=== PATIENT | male | born 1975 | race African-American/Black ===

== ENCOUNTER 2022-09-25 12:47 | Inpatient (IN) | payer MEDICAID, OTHER ==
[~2022-09-25] VITALS: Ht 180.3 cm; Wt 59.0 kg
[2022-09-25 15:04] LABS: HEMATOCRIT. 56.9 % (42.0-52.0); HEMOGLOBIN. 18.5 g/dL (14.0-18.0); MEAN CORPUSCULAR HEMOGLOBIN 29.8 pg (28.0-32.0); MEAN CORPUSCULAR VOLUME 91.9 fL (80.0-94.0); PLATELET 256 x1000/uL (130-400); RED BLOOD CELL COUNT 6.19 mill/uL (4.7-6.1)
[2022-09-25 15:07] LABS: CHLORIDE 101 mEq/L (98-107)
[2022-09-25 15:16] LABS: ETHANOL BLOOD < 10 mg/dL
[2022-09-25 17:12] LABS: PLATELET ESTIMATE NORMAL
[2022-09-26] VITALS (62 sets, daily range): BP systolic 58–181; BP diastolic 27–120
[2022-09-26] MEDS ORDERED: SODIUM CHLORIDE 0.9% 1,000 ML IV ONE ×2 (01:15→02:30)
[2022-09-26] MEDS ORDERED: MORPHINE SULFATE 2 MG/ML CPJ (NOT FOR IM USE) IV ONE ×2 (01:15→02:30)
[2022-09-26] MEDS ORDERED: IOHEXOL-300 100 ML BOTTLE ONE (02:14)
[2022-09-26] MEDS ORDERED: METRONIDAZOLE 500 MG PREMIX 100 ML IV ONE (02:30)
[2022-09-26] MEDS ORDERED: VANCOMYCIN 1G PREMIX 200 ML IV SCH (02:30)
[2022-09-26] MEDS ORDERED: CEFEPIME 1,000 MG in DEXTROSE 5% WATER 50 ML IV SCH (02:30)
[2022-09-26] MEDS ORDERED: BUPIVACAINE HCL/PF 0.5% (5MG/ML) 30ML ONE (04:05)
[2022-09-26] MEDS ORDERED: MIDAZOLAM HCL 2 MG/2 ML VIAL ONE (04:15)
[2022-09-26] MEDS ORDERED: ETOMIDATE 2MG/ML 10ML VIAL IV ONE (04:15)
[2022-09-26] MEDS ORDERED: ROCURONIUM BROMIDE 10MG/ML VIAL 5ML IV ONE ×2 (04:16→07:01)
[2022-09-26] MEDS ORDERED: SUCCINYLCHOLINE CHLORIDE 200MG/10ML IV ONE (04:18)
[2022-09-26] MEDS ORDERED: PHENYLEPHRINE HCL 10 MG/ML 1ML (IV VIAL) IV ONE (04:20)
[2022-09-26] MEDS ORDERED: FENTANYL CITRATE/PF 50MCG/ML 2ML VIAL ONE ×4 (04:27→07:53)
[2022-09-26] MEDS ORDERED: CEFAZOLIN SODIUM 1000MG/VIAL ONE ×2 (04:27)
[2022-09-26] MEDS ORDERED: DEXAMETHASONE 4MG/ML 1ML VIAL ONE (04:28)
[2022-09-26] MEDS ORDERED: ONDANSETRON HCL 4MG/2ML INJ ONE (04:28)
[2022-09-26] MEDS ORDERED: ONDANSETRON HCL 4MG/2ML INJ IV PRN (04:45)
[2022-09-26] MEDS ORDERED: MORPHINE SULFATE 4 MG/ML CPJ (NOT FOR IM USE) IV PRN (04:45)
[2022-09-26] MEDS ORDERED: NALOXONE HCL 0.4MG/ML VIAL IV PRN (05:00)
[2022-09-26] MEDS ORDERED: ALBUMIN HUMAN 12.5GM/50ML (25%) IV ONE (05:18)
[2022-09-26] MEDS ORDERED: ALBUMIN HUMAN 12.5G/250ML (5%) IV ONE ×2 (05:19→05:44)
[2022-09-26] MEDS ORDERED: NOREPINEPHRINE 8 MG in DEXTROSE 5% WATER 250 ML IV PRN (05:30)
[2022-09-26 07:02] LABS: BG BASE EXCESS -16.7 mmol/L (-2.0-2.0); BG CARBOXYHEMOGLOBIN 0.3 % (0.5-1.5); BG DEOXYHEMOGLOBIN 0.2 % (0.0-5.0); BG FRACTION INSPIRED OXYGEN 100; BG HCO3 ACT 12.8 mmol/L (22.0-26.0); BG METHEMOGLOBIN 0.5 % (0.0-1.5); BG OXYGEN SATURATION 99.8 % (92.0-98.5); BG PCO2 44.3 mmHg (35.0-45.0); BG PO2 > 602.7 mmHg (75.0-100.0); BG SAMPLE SITE LEFT FEMORAL; BG TOTAL HEMOGLOBIN 13.2 g/dL (12.0-18.0); BG VENT MODE VENT - SIMV
[2022-09-26] MEDS ORDERED: SODIUM BICARBONATE 8.4% 1 MEQ/ML 50ML SYR IV ONE ×2 (07:02→07:04)
[2022-09-26] MEDS: ENOXAPARIN 40MG/0.4ML SYR SUBCUT SCH (09:00)
[2022-09-26] MEDS ORDERED: DIGOXIN 500MCG/2ML AMP IV SCH (09:00)
[2022-09-26] MEDS: PANTOPRAZOLE SODIUM 40 MG/VIAL IV SCH (09:15)
[2022-09-26 09:53] LABS: BG BASE EXCESS -14.4 mmol/L (-2.0-2.0); BG DEOXYHEMOGLOBIN 0.5 % (0.0-5.0); BG FRACTION INSPIRED OXYGEN 70; BG METHEMOGLOBIN 0.3 % (0.0-1.5); BG OXYGEN SATURATION 99.5 % (92.0-98.5); BG OXYHEMOGLOBIN 99.2 % (94.0-97.0); BG PCO2 35.5 mmHg (35.0-45.0); BG PH 7.181 (7.350-7.450); BG PO2 293.1 mmHg (75.0-100.0); BG SAMPLE SITE RIGHT RADIAL; BG TOTAL HEMOGLOBIN 13.2 g/dL (12.0-18.0); BG VENT MODE VENT - AC
[2022-09-26] MEDS ORDERED: DIGOXIN 500MCG/2ML AMP IV NR (10:30)
[2022-09-26] MEDS ORDERED: SODIUM BICARBONATE 8.4% 1 MEQ/ML 50ML SYR IV NR (10:45)
[2022-09-26] MEDS: METRONIDAZOLE 500 MG PREMIX 100 ML IV SCH ×2 (10:51→15:51)
[2022-09-26] MEDS: PROPOFOL 10MG/ML 100ML 100 ML IV PRN ×3 (11:11→21:18)
[2022-09-26] MEDS: CEFEPIME 1,000 MG in DEXTROSE 5% WATER 50 ML IV SCH ×3 (12:29→22:50)
[2022-09-26] MEDS: PHENYLEPHRINE 50 MG in DEXT 5% WATER 245 ML IV PRN ×2 (13:04→18:13)
[2022-09-26 13:59] LABS: BG BASE EXCESS -5.7 mmol/L (-2.0-2.0); BG CARBOXYHEMOGLOBIN 0.7 % (0.5-1.5); BG DEOXYHEMOGLOBIN 0.6 % (0.0-5.0); BG FRACTION INSPIRED OXYGEN 40; BG HCO3 ACT 18.3 mmol/L (22.0-26.0); BG METHEMOGLOBIN 0.4 % (0.0-1.5); BG OXYGEN SATURATION 99.4 % (92.0-98.5); BG OXYHEMOGLOBIN 98.3 % (94.0-97.0); BG PCO2 31.7 mmHg (35.0-45.0); BG PH 7.379 (7.350-7.450); BG PO2 205.3 mmHg (75.0-100.0); BG SAMPLE SITE RIGHT RADIAL; BG TOTAL HEMOGLOBIN 13.8 g/dL (12.0-18.0); BG VENT MODE VENT - AC
[2022-09-26] MEDS: DEXT 5%/0.45% NACL KCL 20MEQ/L 1,000 ML IV SCH (15:53)
[2022-09-26 16:20] LABS: CLARITY URINE TURBID (CLEAR); COLOR URINE YELLOW (YELLOW); KETONES URINE NEGATIVE (NEGATIVE); LEUKOCYTE ESTERASE URINE NEGATIVE (NEGATIVE); NITRITE URINE NEGATIVE (NEGATIVE); OCCULT BLOOD URINE 3+ (NEGATIVE); PROTEIN URINE 2+ (NEGATIVE); SPECIFIC GRAVITY URINE 1.027 (1.005-1.030); UROBILINOGEN URINE 0.2 E.U./dL (0.2-1.0)
[2022-09-26] MEDS ORDERED: FENTANYL CITRATE/PF 2,500 MCG in SODIUM CHLORIDE 0.9% 200 ML IV PRN (16:30)
[2022-09-26] MEDS ORDERED: IPRATROPIUM BROMIDE (0.02%) 0.5MG/2.5ML NEB HHN PRN (16:30)
[2022-09-26 16:34] LABS: *AMPHETAMINES SCREEN URINE NEGATIVE (NEGATIVE); *BARBITURATES SCREEN URINE NEGATIVE (NEGATIVE); *BENZODIAZEPINES SCREEN URINE PRESUMTIVE POSITIVE (NEGATIVE); *COCAINE SCREEN URINE NEGATIVE (NEGATIVE); CANNABINOID URINE SCREEN PRESUMTIVE POSITIVE (NEGATIVE); METHADONE URINE SCREEN NEGATIVE (NEGATIVE); OPIATES URINE SCREEN PRESUMTIVE POSITIVE (NEGATIVE); PHENCYCLIDINE URINE SCREEN NEGATIVE (NEGATIVE)
[2022-09-26] MEDS ORDERED: NOREPINEPHRINE 8 MG in DEXT 5% WATER 242 ML IV PRN (18:30)
[2022-09-26] MEDS: IPRATROPIUM BROMIDE (0.02%) 0.5MG/2.5ML NEB HHN SCH (20:30)
[2022-09-27] VITALS (75 sets, daily range): BP systolic 86–157; BP diastolic 25–113
[2022-09-27] MEDS: METRONIDAZOLE 500 MG PREMIX 100 ML IV SCH ×4 (00:29→22:52)
[2022-09-27] MEDS: PHENYLEPHRINE 50 MG in DEXT 5% WATER 245 ML IV PRN ×2 (00:31→03:32)
[2022-09-27] MEDS: DEXT 5%/0.45% NACL KCL 20MEQ/L 1,000 ML IV SCH ×2 (01:12→10:45)
[2022-09-27] MEDS: IPRATROPIUM BROMIDE (0.02%) 0.5MG/2.5ML NEB HHN SCH ×4 (02:09→20:25)
[2022-09-27 05:44] LABS: HEMATOCRIT. 38.9 % (42.0-52.0); HEMOGLOBIN. 13.1 g/dL (14.0-18.0); MEAN CORPUSCULAR VOLUME 89.2 fL (80.0-94.0); MEAN PLATELET VOLUME 10.5 fl (7.4-10.4); PLATELET 163 x1000/uL (130-400); RED BLOOD CELL COUNT 4.36 mill/uL (4.7-6.1); RED CELL DISTRIBUTION WIDTH 14.3 % (11.6-14.6)
[2022-09-27] MEDS: PROPOFOL 10MG/ML 100ML 100 ML IV PRN (06:55)
[2022-09-27] MEDS ORDERED: LIDOCAINE HCL/PF 1% 10 MG/ML 5ML VIAL ONE (07:47)
[2022-09-27] MEDS: PANTOPRAZOLE SODIUM 40 MG/VIAL IV SCH (09:07)
[2022-09-27] MEDS: ENOXAPARIN 40MG/0.4ML SYR SUBCUT SCH (09:07)
[2022-09-27 09:27] LABS: PLATELET ESTIMATE NORMAL
[2022-09-27 10:02] LABS: BG BASE EXCESS -1.5 mmol/L (-2.0-2.0); BG CARBOXYHEMOGLOBIN 0.2 % (0.5-1.5); BG DEOXYHEMOGLOBIN 1.7 % (0.0-5.0); BG FRACTION INSPIRED OXYGEN 40; BG HCO3 ACT 22.5 mmol/L (22.0-26.0); BG METHEMOGLOBIN 0.3 % (0.0-1.5); BG OXYGEN SATURATION 98.3 % (92.0-98.5); BG OXYHEMOGLOBIN 97.8 % (94.0-97.0); BG PCO2 35.8 mmHg (35.0-45.0); BG PH 7.417 (7.350-7.450); BG SAMPLE SITE LEFT RADIAL; BG TOTAL HEMOGLOBIN 12.9 g/dL (12.0-18.0); BG VENT MODE VENT - AC
[2022-09-27] MEDS ORDERED: PROPOFOL 10MG/ML 100ML 100 ML IV PRN (10:30)
[2022-09-27 14:17] LABS: BG BASE EXCESS 0.4 mmol/L (-2.0-2.0); BG CARBOXYHEMOGLOBIN 0.1 % (0.5-1.5); BG DEOXYHEMOGLOBIN 1.5 % (0.0-5.0); BG FRACTION INSPIRED OXYGEN 40; BG HCO3 ACT 25.5 mmol/L (22.0-26.0); BG METHEMOGLOBIN 0.3 % (0.0-1.5); BG OXYGEN SATURATION 98.5 % (92.0-98.5); BG OXYHEMOGLOBIN 98.1 % (94.0-97.0); BG PH 7.391 (7.350-7.450); BG PO2 146.3 mmHg (75.0-100.0); BG SAMPLE SITE RIGHT RADIAL; BG TOTAL HEMOGLOBIN 13.7 g/dL (12.0-18.0); BG VENT MODE VENT - CPAP
[2022-09-27] MEDS: CEFEPIME 1,000 MG in DEXTROSE 5% WATER 50 ML IV SCH (21:26)
[2022-09-27] MEDS: DEXT 5%/0.45% NACL 1000ML 1,000 ML IV SCH (21:40)
[2022-09-28] VITALS (40 sets, daily range): BP systolic 110–157; BP diastolic 66–105
[2022-09-28] MEDS: IPRATROPIUM BROMIDE (0.02%) 0.5MG/2.5ML NEB HHN SCH ×4 (02:34→20:47)
[2022-09-28 05:59] LABS: PHOSPHORUS 4.2 mg/dL (2.5-4.9)
[2022-09-28] MEDS: METRONIDAZOLE 500 MG PREMIX 100 ML IV SCH ×3 (06:41→22:00)
[2022-09-28] MEDS: ENOXAPARIN 30MG/0.3ML SYR SUBCUT SCH (09:07)
[2022-09-28] MEDS: PANTOPRAZOLE SODIUM 40 MG/VIAL IV SCH (09:07)
[2022-09-28] MEDS: MORPHINE SULFATE 2 MG/ML CPJ (NOT FOR IM USE) IV PRN ×2 (09:10→14:07)
[2022-09-28 10:07] LABS: HEMATOCRIT. 36.4 % (42.0-52.0); HEMOGLOBIN. 12.2 g/dL (14.0-18.0); MEAN CORPUSCULAR HEMOGLOBIN 29.7 pg (28.0-32.0); MEAN CORPUSCULAR VOLUME 88.9 fL (80.0-94.0); MEAN PLATELET VOLUME 10.3 fl (7.4-10.4); PLATELET 127 x1000/uL (130-400); RED CELL DISTRIBUTION WIDTH 13.9 % (11.6-14.6)
[2022-09-28] MEDS ORDERED: METOPROLOL TARTRATE 5MG/5ML VIAL IV PRN (10:15)
[2022-09-28] MEDS: DEXT 5%/0.45% NACL 1000ML 1,000 ML IV SCH (11:16)
[2022-09-28 11:40] LABS: PLATELET ESTIMATE NORMAL
[2022-09-28] MEDS: CEFEPIME 1,000 MG in DEXTROSE 5% WATER 50 ML IV SCH (20:26)
[2022-09-29] VITALS (24 sets, daily range): BP systolic 121–170; BP diastolic 53–120
[2022-09-29] MEDS: DEXT 5%/0.45% NACL 1000ML 1,000 ML IV SCH ×2 (00:42→13:47)
[2022-09-29] MEDS: IPRATROPIUM BROMIDE (0.02%) 0.5MG/2.5ML NEB HHN SCH ×4 (02:35→21:00)
[2022-09-29] MEDS: METRONIDAZOLE 500 MG PREMIX 100 ML IV SCH ×3 (06:00→21:58)
[2022-09-29 06:34] LABS: HEMOGLOBIN. 12.3 g/dL (14.0-18.0); MEAN CORPUSCULAR HEMOGLOBIN 30.3 pg (28.0-32.0); MEAN CORPUSCULAR VOLUME 88.6 fL (80.0-94.0); MEAN PLATELET VOLUME 10.4 fl (7.4-10.4); PLATELET 116 x1000/uL (130-400); RED BLOOD CELL COUNT 4.06 mill/uL (4.7-6.1); RED CELL DISTRIBUTION WIDTH 14.4 % (11.6-14.6)
[2022-09-29] MEDS: PANTOPRAZOLE SODIUM 40 MG/VIAL IV SCH (08:32)
[2022-09-29] MEDS: ENOXAPARIN 30MG/0.3ML SYR SUBCUT SCH (08:33)
[2022-09-29 09:45] LABS: CHLORIDE 106 mEq/L (98-107)
[2022-09-29 10:05] LABS: PHOSPHORUS 2.7 mg/dL (2.5-4.9)
[2022-09-29 13:40] LABS: PLATELET ESTIMATE SLIGHTLY DECREASED
[2022-09-29] MEDS: CEFEPIME 1,000 MG in DEXTROSE 5% WATER 50 ML IV SCH (21:56)
[2022-09-30] VITALS (14 sets, daily range): BP systolic 131–166; BP diastolic 46–99
[2022-09-30] MEDS: IPRATROPIUM BROMIDE (0.02%) 0.5MG/2.5ML NEB HHN SCH ×3 (02:19→21:49)
[2022-09-30] MEDS: DEXT 5%/0.45% NACL 1000ML 1,000 ML IV SCH ×2 (02:50→19:06)
[2022-09-30 06:25] LABS: HEMATOCRIT. 34.9 % (42.0-52.0); MEAN CORPUSCULAR HEMOGLOBIN 30.7 pg (28.0-32.0); MEAN CORPUSCULAR VOLUME 88.8 fL (80.0-94.0); MEAN PLATELET VOLUME 10.2 fl (7.4-10.4); PLATELET 128 x1000/uL (130-400); RED BLOOD CELL COUNT 3.93 mill/uL (4.7-6.1); RED CELL DISTRIBUTION WIDTH 14.7 % (11.6-14.6)
[2022-09-30] MEDS: METRONIDAZOLE 500 MG PREMIX 100 ML IV SCH ×3 (06:57→23:30)
[2022-09-30 07:09] LABS: CHLORIDE 107 mEq/L (98-107)
[2022-09-30 07:15] LABS: PHOSPHORUS 2.3 mg/dL (2.5-4.9)
[2022-09-30] MEDS: PANTOPRAZOLE SODIUM 40 MG/VIAL IV SCH (09:03)
[2022-09-30] MEDS: ENOXAPARIN 30MG/0.3ML SYR SUBCUT SCH (09:04)
[2022-09-30] MEDS: MORPHINE SULFATE 2 MG/ML CPJ (NOT FOR IM USE) IV PRN (09:45)
[2022-09-30] MEDS ORDERED: SODIUM PHOS,M-BASIC-D-BASIC 15 MM in DEXT 5% WATER 245 ML IV SCH (11:00)
[2022-09-30] MEDS: CEFEPIME 1,000 MG in DEXTROSE 5% WATER 50 ML IV SCH ×2 (11:30→23:30)
[2022-09-30] MEDS ORDERED: FLUCONAZOLE 100MG TABLET PO SCH (11:45)
[2022-09-30 12:55] LABS: PLATELET ESTIMATE SLIGHTLY DECREASED
[2022-09-30] MEDS: FLUCONAZOLE 200 MG/100ML BAG 100 ML IV SCH (14:00)
[2022-10-01] VITALS: BP 139/88
[2022-10-01] MEDS: IPRATROPIUM BROMIDE (0.02%) 0.5MG/2.5ML NEB HHN SCH ×4 (02:15→21:40)
[2022-10-01 04:00] VITALS: BP 134/103
[2022-10-01] MEDS: DEXT 5%/0.45% NACL 1000ML 1,000 ML IV SCH (05:30)
[2022-10-01] MEDS: METRONIDAZOLE 500 MG PREMIX 100 ML IV SCH ×3 (06:00→21:53)
[2022-10-01] MEDS: CEFEPIME 1,000 MG in DEXTROSE 5% WATER 50 ML IV SCH ×2 (07:11→20:10)
[2022-10-01] MEDS: PANTOPRAZOLE SODIUM 40 MG/VIAL IV SCH (08:26)
[2022-10-01] MEDS: ENOXAPARIN 40MG/0.4ML SYR SUBCUT SCH (08:27)
[2022-10-01 12:00] VITALS: BP 131/84
[2022-10-01] MEDS: FLUCONAZOLE 200 MG/100ML BAG 100 ML IV SCH (14:50)
[2022-10-01 17:49] LABS: HEMATOCRIT. 39.8 % (42.0-52.0); HEMOGLOBIN. 13.5 g/dL (14.0-18.0); MEAN CORPUSCULAR HEMOGLOBIN 30.1 pg (28.0-32.0); MEAN CORPUSCULAR VOLUME 88.4 fL (80.0-94.0); MEAN PLATELET VOLUME 9.9 fl (7.4-10.4); PLATELET 161 x1000/uL (130-400); RED CELL DISTRIBUTION WIDTH 14.3 % (11.6-14.6)
[2022-10-01 17:58] LABS: CHLORIDE 102 mEq/L (98-107)
[2022-10-01 18:15] LABS: PLATELET ESTIMATE NORMAL
[2022-10-01 20:00] VITALS: BP 145/81
[2022-10-02] VITALS: BP 124/83
[2022-10-02] MEDS: METRONIDAZOLE 500 MG PREMIX 100 ML IV SCH ×4 (01:25→23:56)
[2022-10-02 04:00] VITALS: BP 115/78
[2022-10-02 06:59] LABS: CHLORIDE 102 mEq/L (98-107)
[2022-10-02 07:11] LABS: HEMATOCRIT. 38.6 % (42.0-52.0); HEMOGLOBIN. 13.1 g/dL (14.0-18.0); MEAN CORPUSCULAR HEMOGLOBIN 29.6 pg (28.0-32.0); MEAN CORPUSCULAR VOLUME 87.5 fL (80.0-94.0); MEAN PLATELET VOLUME 9.6 fl (7.4-10.4); PLATELET 173 x1000/uL (130-400); RED BLOOD CELL COUNT 4.41 mill/uL (4.7-6.1); RED CELL DISTRIBUTION WIDTH 14.2 % (11.6-14.6)
[2022-10-02 08:00] VITALS: BP 137/98
[2022-10-02] MEDS: FAMOTIDINE 20MG TABLET PO SCH ×2 (10:25→20:33)
[2022-10-02] MEDS: CEFEPIME 1,000 MG in DEXTROSE 5% WATER 50 ML IV SCH ×2 (10:25→20:33)
[2022-10-02] MEDS: ENOXAPARIN 40MG/0.4ML SYR SUBCUT SCH (10:26)
[2022-10-02] MEDS: DEXT 5%/0.45% NACL 1000ML 1,000 ML IV SCH ×2 (10:27→20:34)
[2022-10-02 12:00] VITALS: BP 124/80
[2022-10-02] MEDS ORDERED: OMEP40CA20 MT (12:13)
[2022-10-02] MEDS: FLUCONAZOLE 200 MG/100ML BAG 100 ML IV SCH (14:01)
[2022-10-02 16:00] VITALS: BP 130/64
[2022-10-02] MEDS ORDERED: FLUC200T51 MT (16:39)
[2022-10-02] MEDS ORDERED: AMOX1TAB16 MT (16:39)
[2022-10-02 20:00] VITALS: BP 148/96
[2022-10-03 04:00] VITALS: BP 135/90
[2022-10-03 07:10] LABS: PLATELET ESTIMATE NORMAL
[2022-10-03] MEDS: ENOXAPARIN 40MG/0.4ML SYR SUBCUT SCH (08:35)
[2022-10-03] MEDS: METRONIDAZOLE 500 MG PREMIX 100 ML IV SCH ×2 (08:35→16:37)
[2022-10-03] MEDS: DEXT 5%/0.45% NACL 1000ML 1,000 ML IV SCH (08:35)
[2022-10-03] MEDS: CEFEPIME 1,000 MG in DEXTROSE 5% WATER 50 ML IV SCH ×2 (08:35→21:02)
[2022-10-03] MEDS: FAMOTIDINE 20MG TABLET PO SCH ×2 (08:35→21:02)
[2022-10-03 09:01] LABS: HEMATOCRIT. 38.2 % (42.0-52.0); HEMOGLOBIN. 12.8 g/dL (14.0-18.0); MEAN CORPUSCULAR HEMOGLOBIN 29.3 pg (28.0-32.0); MEAN CORPUSCULAR VOLUME 87.7 fL (80.0-94.0); MEAN PLATELET VOLUME 9.6 fl (7.4-10.4); PLATELET 206 x1000/uL (130-400); RED BLOOD CELL COUNT 4.35 mill/uL (4.7-6.1); RED CELL DISTRIBUTION WIDTH 14.2 % (11.6-14.6)
[2022-10-03 09:28] LABS: CHLORIDE 102 mEq/L (98-107)
[2022-10-03 09:34] LABS: PHOSPHORUS 2.7 mg/dL (2.5-4.9)
[2022-10-03 13:46] LABS: PLATELET ESTIMATE NORMAL
[2022-10-03] MEDS: FLUCONAZOLE 200 MG/100ML BAG 100 ML IV SCH (14:14)
[2022-10-03 20:00] VITALS: BP 130/79
[2022-10-04] VITALS: BP 116/69
[2022-10-04] MEDS: METRONIDAZOLE 500 MG PREMIX 100 ML IV SCH ×2 (00:03→08:42)
[2022-10-04] MEDS: DEXT 5%/0.45% NACL 1000ML 1,000 ML IV SCH ×2 (00:04→11:57)
[2022-10-04] MEDS: ENOXAPARIN 40MG/0.4ML SYR SUBCUT SCH (08:42)
[2022-10-04] MEDS: FAMOTIDINE 20MG TABLET PO SCH (08:42)
[2022-10-04] MEDS ORDERED: IPRATROPIUM/ALBUTEROL 0.5-3(2.5)MG/3ML NEB HHN PRN (11:15)
[2022-10-04] MEDS ORDERED: IPRATROPIUM BROMIDE (0.02%) 0.5MG/2.5ML NEB HHN PRN (11:30)
[2022-10-04] MEDS ORDERED: ALBUTEROL (0.083%) 2.5MG/3ML NEB HHN PRN (11:30)
[2022-10-04] MEDS: CEFEPIME 1,000 MG in DEXTROSE 5% WATER 50 ML IV SCH (11:57)
[2022-10-04 12:00] VITALS: BP 126/84
[2022-10-04 14:01] VITALS: BP 126/84
== END 2022-10-04 14:20 | disposition home or self-care (01) | DRG 710 ==
LOC: ER 12:47 → EDBEDREQ 09-26 02:58 → EDBEDREQTM 09-26 02:58 → CVICU 09-26 07:07 → 6EST 09-30 10:18
PROVIDERS: ADMIT Internal Medicine; ATTEND Internal Medicine
PROC: 0BH17EZ Insertion of Endotracheal Airway into Trachea, Via Natural or Artificial Opening (ICD-10-PCS; principal; 2022-09-26)
PROC: 5A1945Z Respiratory Ventilation, 24-96 Consecutive Hours (ICD-10-PCS; 2022-09-26)
PROC: 0DU607Z Supplement Stomach with Autologous Tissue Substitute, Open Approach (ICD-10-PCS; 2022-09-26)
PROC: 02HV33Z Insertion of Infusion Device into Superior Vena Cava, Percutaneous Approach (ICD-10-PCS; 2022-09-27)
PROC: B548ZZA Ultrasonography of Superior Vena Cava, Guidance (ICD-10-PCS; 2022-09-27)
DX: A41.9 Sepsis, unspecified organism (principal); J96.00 Acute respiratory failure, unspecified whether with hypoxia or hypercapnia; N17.0 Acute kidney failure with tubular necrosis; R65.21 Severe sepsis with septic shock; K25.5 Chronic or unspecified gastric ulcer with perforation; D69.6 Thrombocytopenia, unspecified; E87.1 Hypo-osmolality and hyponatremia; K65.9 Peritonitis, unspecified; E44.0 Moderate protein-calorie malnutrition; Z68.1 Body mass index [BMI] 19.9 or less, adult; E87.20 Acidosis, unspecified; F12.929 Cannabis use, unspecified with intoxication, unspecified; D64.9 Anemia, unspecified; Z20.822 Contact with and (suspected) exposure to COVID-19; J45.909 Unspecified asthma, uncomplicated; Z86.74 Personal history of sudden cardiac arrest
CPT/HCPCS: 36415; 36573; 36600; 71045; 74177; 76770; 80048; 80053; 80305; 80320; 81003; 82375; 82805; 83735; 84100; 84145; 84478; 85025; 87070; 87075; 87426; 92610; 93970; 93971; 94003; 94640; 99291; C1725; C9113; C9803; J0330; J0690; J0692; J1100; J1160; J1450; J1650; J2250; J2270; J2370; J2405; J2704; J3010; J3370; J3490; J7030; J7050; J7060; L3908; P9041; P9047; Q9967; G0480

== ENCOUNTER 2022-10-20 11:13 | Emergency (ER) | payer OTHER ==
[~2022-10-20] VITALS: Ht 170.2 cm; Wt 66.0 kg
[~2022-10-20 11:13] MED LIST: AMOX1TAB16 MT; FLUC200T51 MT; OMEP40CA20 MT
[2022-10-20 11:53] VITALS: BP 141/99
[2022-10-20] MEDS ORDERED: BACITRACIN ZINC OINT UDPKT TOP ONE (15:30)
[2022-10-20] MEDS ORDERED: BO1 TP (15:35)
== END 2022-10-20 16:31 | disposition home or self-care (01) ==
LOC: ER 13:50
DX: Z48.02 Encounter for removal of sutures (principal)
CPT/HCPCS: 99282; Z7610